=== PATIENT | male | born 1955 | race Caucasian/White ===

== ENCOUNTER 2017-06-20 12:23 | Inpatient (IN) | payer MEDICARE ==
--- NOTE | 2017-06-20 12:40 | NUR ---
RECEIVED FROM MD OFFICE. ARRIVED TO FLOOR IN . ORIENTED TO ROOM AND CALL LIGHT SYSTEM. EXPLAINED TO PATIENT THAT I NEED FOR HIM TO CHANGE INTO HIS GOWN SO THAT I CAN GET HIS IV STARTED AND MEDS GOING. VERBALIZED UNDERSTANDING.
--- NOTE | 2017-06-20 13:10 | NUR ---
TO RADIOLOGY VIA .
[2017-06-20 14:00] LABS: BASOPHILS 0.2 % (0-2); EOSINOPHILS 1.3 % (0-7); HEMATOCRIT 47.6 % (42.0-54.0); IMMATURE GRANULOCYTES 0.2 % (0-5); LYMPHOCYTES 17.8 % (15-50); MCH 29.8 pg (26.0-34.0); MCHC 33.6 g/dL (31.0-37.0); MCV 88.6 fL (80.0-100.0); MEAN PLATELET VOLUME 11.2 fL (7.4-10.4); MONOCYTES 4.8 % (2-11); NEUTROPHILS 75.7 % (40-80); PLATELET COUNT 298 10x3/uL (130-400); RBC 5.37 10x6/uL (4.20-6.10); RDW 12.9 % (11.5-14.5); WBC 13.4 10x3/uL (4.8-10.8)
[2017-06-20 14:18] LABS: ALKALINE PHOSPHATASE 157 U/L (46-116); ALT (SGPT) 33 U/L (10-68); BILIRUBIN - TOTAL 0.69 mg/dL (0.2-1.3); CARBON DIOXIDE 29.2 mmol/L (21.0-32.0); POTASSIUM - SERUM 4.3 mmol/L (3.5-5.1); PROTEIN - SERUM 7.2 g/dL (6.4-8.2); UREA NITROGEN 10 mg/dL (7-18); eGFR NON AFRICAN AMERICAN 81 mL/min (90-120)
--- NOTE | 2017-06-20 14:55 | NUR ---
BACK IN ROOM AT THIS TIME FROM NRI. ATTEMPTED TO GO IN ROOM TO START IV BUT HE WAS IN THE BR AGAIN.
[2017-06-20 15:00] LABS: HEMOGLOBIN A1C 11.6 % (4.8-6.0)
[2017-06-20 15:02] LABS: CALC OSMOLALITY 284 mosm/kg (275-300)
[2017-06-20 15:03] LABS: GLUCOSE 884 mg/dL (74-106)
[2017-06-20 15:04] LABS: CHLORIDE - SERUM 80 mmol/L (98-107); SODIUM 120 mmol/L (136-145)
[2017-06-20] MEDS ORDERED: ULTRAM50 MG PO (15:49)
[2017-06-20] MEDS ORDERED: LISINOPRIL-HCTZ1 T13 PO (15:49)
[2017-06-20] MEDS ORDERED: ATIVAN0.5 MG PO (15:50)
[2017-06-20] MEDS ORDERED: NEURONTIN800 MG PO (15:50)
[2017-06-20] MEDS ORDERED: ZOCOR10 MG PO (15:50)
[2017-06-20 15:55] LABS: APPEARANCE CLEAR (CLEAR); BILIRUBIN NEGATIVE (NEGATIVE); COLOR YELLOW (YELLOW); GLUCOSE 1000 mg/dL (NEGATIVE); KETONE NEGATIVE (NEGATIVE); NITRITE NEGATIVE (NEGATIVE); PROTEIN NEGATIVE (NEGATIVE); UROBILINOGEN NORMAL (NORMAL)
--- NOTE | 2017-06-20 16:40 | NUR ---
VANCOMYCIN IVPB. FSBS 564. WILL PUT IN STAT LAB FOR GLUCOSE.
--- NOTE | 2017-06-20 17:33 | NUR ---
28 UNITS ADMINISTERED AGAIN FOR GLUCOSE OF 611.
[2017-06-20 17:42] VITALS: BP 126/76
--- NOTE | 2017-06-20 18:08 | NUR ---
NO CHANGES IN INITIAL ASSESSMENT. CALL LIGHT IN REACH. WILL CONTINUE WITH PLAN OF CARE.
[2017-06-20 19:11] VITALS: BMI 42.7
[2017-06-20 20:00] VITALS: BP 135/70
--- NOTE | 2017-06-21 02:00 | NUR ---
PT IN BED WITH NO DISTRESS. RESPIRATIONS EVEN AND UNLABORED. SIDE RAILS X 2. BED LOW. CALL LIGHT IN REACH.
[2017-06-21 04:00] VITALS: BP 101/83
[2017-06-21 05:23] LABS: BASOPHILS 0.2 % (0-2); EOSINOPHILS 2.8 % (0-7); HEMATOCRIT 46.2 % (42.0-54.0); HEMOGLOBIN 15.9 g/dL (13.5-17.5); IMMATURE GRANULOCYTES 0.3 % (0-5); LYMPHOCYTES 27.3 % (15-50); MCH 29.7 pg (26.0-34.0); MCHC 34.4 g/dL (31.0-37.0); MEAN PLATELET VOLUME 10.5 fL (7.4-10.4); MONOCYTES 6.9 % (2-11); NEUTROPHILS 62.5 % (40-80); PLATELET COUNT 285 10x3/uL (130-400); RBC 5.36 10x6/uL (4.20-6.10); RDW 12.8 % (11.5-14.5); WBC 12.3 10x3/uL (4.8-10.8)
[2017-06-21 05:39] LABS: MCV 86.2 fL (80.0-100.0)
[2017-06-21 05:57] LABS: ALBUMIN 2.8 g/dL (3.4-5.0); ALKALINE PHOSPHATASE 110 U/L (46-116); ALT (SGPT) 29 U/L (10-68); BILIRUBIN - TOTAL 0.66 mg/dL (0.2-1.3); CALCIUM 8.8 mg/dL (8.5-10.1); CHLORIDE - SERUM 89 mmol/L (98-107); CREATININE - SERUM 0.8 mg/dL (0.6-1.3); PHOSPHOROUS 3.5 mg/dL (2.5-4.9); PROTEIN - SERUM 7.2 g/dL (6.4-8.2); SODIUM 132 mmol/L (136-145); UREA NITROGEN 10 mg/dL (7-18); eGFR NON AFRICAN AMERICAN > 90 mL/min (90-120)
[2017-06-21 06:04] LABS: KETONE - SERUM NEGATIVE (NEGATIVE)
[2017-06-21 06:16] LABS: CALC OSMOLALITY 266 mosm/kg (275-300); GLUCOSE 161 mg/dL (74-106)
--- NOTE | 2017-06-21 07:00 | NUR ---
REPORT RECIEVED ASSUMED CARE. PATIENT IN BED WITH IV INTACT. NO COMPLAINTS. CALL LIGHT WITHIN REACH.
[2017-06-21 08:09] VITALS: BP 115/75
--- NOTE | 2017-06-21 09:30 | NUR ---
PATIENT PLACED ON TEMP ISO FOR POSS MRSA.
[2017-06-21 12:28] VITALS: BP 116/72
--- NOTE | 2017-06-21 12:28 | NUR ---
NUTRITION F/U CHART REVIEWED, PT VISIT X2. PROVIDED DM DIET EDU INFORMATION. PT DOES ADMIT TO PRIOR EDU "BUT HAVEN'T BEEN DOING WHAT I'M SUPPOSED TO". PT STATED HE WOULD READ THRU ALL INFORMATION. DISCUSSED LABEL READING, PORTION CONTROL, # CARB CHOICES ALLOWED WITH EACH MEAL. PT JOKINGLY ? ASKED FOR [address] CHE[address]GERS [address] LUNCH[address] PROVIDED RD NAME & CONTACT INFORMATION. RD FOLLOWING
--- NOTE | 2017-06-21 14:48 | NUR ---
Wound care consult: Right great toe was amputated 2 years ago. There is an open non-healing wound at amputation site measuring 5cm x 5cm x 0.8cm. The wound bed is red and yellow surrounded by black,calloused, dry escar. Right #2 toe tip (pad on underside of toe) has an open non-healing wound meauring 3cm x 3cm x 0.5cm. The wound bed is red and yellow and is surrounded by black,caloused, dry escar. Arch of right foot is red - looks like it was peeled, but it dry. Left great toe was amputated approx 2 years ago and this site appears healed. The left #2 toe has a large thick callous on the underside (pad) of toe. No drainage or odor noted from any of these wounds. Cultures were obtained 06/20/17. Bactroban ointment is being applied twice daily to right foot and foot is wrapped for protection. Wound care will continue monitoring.
[2017-06-21 15:47] VITALS: BP 114/65
--- NOTE | 2017-06-21 18:45 | NUR ---
PATIENT SITTING UP ON THE SIDE OF THE BED WITH NO COMPLAINTS AT THIS TIME. IV INTACT. DRESSING OFF. WAS WAITING FOR DR. BECKER TO SEE IF HE WAS GOING TO DEBRIDE TOE TODAY. DRESSING TO BE REPLACED. CALL LIGHT WITHIN REACH.
[2017-06-21 20:00] VITALS: BP 120/70
--- NOTE | 2017-06-21 20:07 | NUR ---
PATIENT RESTING IN BED AND DENIES NEEDS AT THIS TIME. BED IN LOWEST POSITION AND CALL LIGHT WITHIN REACH. ENCOURAGED THE PATIENT TO CALL IF HE HAS NEEDS.
--- NOTE | 2017-06-21 22:00 | HP ---
PATIENT: ZE SAHU MEDICAL RECORD: [id number] ACCOUNT: [id number] LOCATION:D.[id number] : 59 ADMISSION DATE: 06/20/17 HISTORY AND PHYSICAL EXAMINATION HISTORY OF PRESENT ILLNESS: Mr. Sahu is a 61-year-old white male with a history of poorly controlled diabetes with amputations of the digits on both feet, who presents today with a 6-week history of left foot pain with redness and swelling. He has had a previous amputation of the first and second toes of the right foot at [facility] last year and had an extended hospitalization. States that it has been read, swollen and looking infected for over 6 weeks, but he is just now coming in. [place] and his dog. He initially declined hospitalization until he can make arrangements for his dog and someone to watch his place. He denies any fever. He has had weight loss. He has had multiple other constitutionals going on right now. He is being admitted for evaluation of his foot. We will get cultures, x-rays, MRI and an ID consult. PAST MEDICAL HISTORY: Significant for known hyperlipidemia, hypertension, asthma, COPD, osteoarthritis, type 2 diabetes, obesity, anxiety, depression, chronic diarrhea, and diabetic neuropathy. Also, he has a history of polycythemia. PAST SURGICAL HISTORY: Include eye surgery in 2008 and bilateral toe amputations at [facility] 2014 or 2015. ALLERGIES OR INTOLERANCES: INCLUDE NAPROSYN. CURRENT HOME MEDICATIONS: Include gabapentin 800 mg t.i.d., metformin 1000 one b.i.d., simvastatin 10 mg at bedtime and aspirin a day, tramadol 1-2 q.4-6 p.r.n. pain, albuterol nebulizer O2 at h.s., Tylenol and lisinopril/HCTZ 20/25 daily. FAMILY HISTORY: Significant for heart failure, coronary artery disease, hypertension, COPD, hepatitis C, renal failure and type 2 diabetes. SOCIAL HISTORY: The patient is a equipment mechanic. He is . He is a smoker, smokes 2 packs a day. He does not drink. REVIEW OF SYSTEMS: Significant for worsening fatigue. No fever. He has been having some weight loss. He complains of a dry mouth. No chest pain, no shortness of breath. He complains of multiple joint pains, low back pain, foot pain, numbness, tingling compatible with neuropathy. PHYSICAL EXAMINATION: GENERAL: He obviously does not feel well. He is a little tearful at times. HEENT: Head is normocephalic, sclerae nonicteric. HEART: Regular. LUNGS: Clear. ABDOMEN: Soft. EXTREMITIES: Bilateral feet shows bilateral toe amputations, the left foot has healed well. The right foot is red, swollen and warm distally. There is a large ulcer with a size of a 50-cent piece on the right foot, which showed granulation. There is grass and dirt down in it and it is draining. NEUROLOGIC: Without any gross symptoms. HISTORY AND PHYSICAL [id number] ZE SAHU PSYCHIATRIC: His affect is okay. Mood seems depressed. IMPRESSION: Diabetic foot ulcer with probable infection, diabetic neuropathy, chronic obstructive pulmonary disease, peripheral vascular disease, hyperlipidemia, hypertension, depression and chronic pain. PLAN: Orders were given to the patient and we will fax to the hospital. He promises to go once he has made arrangements for his dog and someone to watch his place. We will start him on IV fluids, get cultures, start some IV Zosyn and vancomycin, ask ID to see, get an x-ray of the foot, get an MRI of the foot. See orders for rest of plan. TRANSINT:[id number] Voice Confirmation ID: [id number] DOCUMENT ID: [id number] IRINA BATISTA DO at 2200 CC: [id number] DICTATION DATE: 06/19/171845 SPEECH COACH: 06/19/172000 ADM IN [facility] [id number] [place] [address]
--- NOTE | 2017-06-22 02:18 | NUR ---
SITTING UP ON BEDSIDE, DENIES NEEDS, NO DISTRESS NOTED, WILL CONTINUE TO MONITOR
[2017-06-22 06:15] LABS: BASOPHILS 0.2 % (0-2); EOSINOPHILS 2.7 % (0-7); HEMATOCRIT 44.6 % (42.0-54.0); HEMOGLOBIN 14.9 g/dL (13.5-17.5); IMMATURE GRANULOCYTES 0.3 % (0-5); MCH 29.3 pg (26.0-34.0); MCHC 33.4 g/dL (31.0-37.0); MCV 87.6 fL (80.0-100.0); MEAN PLATELET VOLUME 10.7 fL (7.4-10.4); NEUTROPHILS 64.8 % (40-80); PLATELET COUNT 263 10x3/uL (130-400); RBC 5.09 10x6/uL (4.20-6.10); RDW 12.8 % (11.5-14.5); WBC 9.5 10x3/uL (4.8-10.8)
[2017-06-22 06:43] LABS: ALBUMIN 2.8 g/dL (3.4-5.0); ALKALINE PHOSPHATASE 111 U/L (46-116); BILIRUBIN - TOTAL 0.48 mg/dL (0.2-1.3); CALCIUM 8.7 mg/dL (8.5-10.1); CARBON DIOXIDE 34.1 mmol/L (21.0-32.0); CHLORIDE - SERUM 95 mmol/L (98-107); CREATININE - SERUM 0.6 mg/dL (0.6-1.3); POTASSIUM - SERUM 3.4 mmol/L (3.5-5.1); PROTEIN - SERUM 6.5 g/dL (6.4-8.2); SODIUM 134 mmol/L (136-145); UREA NITROGEN 12 mg/dL (7-18); eGFR NON AFRICAN AMERICAN > 90 mL/min (90-120)
[2017-06-22 06:54] LABS: ALT (SGPT) 11 U/L (10-68); CALC OSMOLALITY 275 mosm/kg (275-300); GLUCOSE 236 mg/dL (74-106)
--- NOTE | 2017-06-22 07:00 | NUR ---
REPORT RECIEVED ASSUMED CARE. PATIENT IN BED WITH IV INTACT. NO COMPLAINTS AT THIS TIME. CALL LIGHT WITHIN REACH.
--- NOTE | 2017-06-22 08:15 | NUR ---
ASSESSMENT COMPLETE, VS STABLE. IV INTACT. NO COMPLAINTS. DRESSING TO TOE OFF AT THIS TIME. STATED HE DIDNT WANT TO PUT ANOTHER ONE ON RIGHT NOW BECAUSE IT WOULD JUST COME OFF. WOUND CLEANED AND BACTROBAN APPLIED. CALL LIGHT WITHIN REACH.
[2017-06-22 08:38] VITALS: BP 141/78
--- NOTE | 2017-06-22 12:00 | NUR ---
PATIENT SITTING UP ON THE SIDE OF THE BED EATING. NO COMPLAINTS. IV INTACT. CALL LIGHT WITHIN REACH.
[2017-06-22 13:01] VITALS: BP 135/77
--- NOTE | 2017-06-22 15:57 | NUR ---
DR. BECKER IN ROOM. CLEANED WOUND OUT AND PLACED NEW BANDAGE AT THIS TIME. PATIENT TOLERATED WITH 0 PAIN. IV INTACT. CALL LIGHT WITHIN REACH.
[2017-06-22 16:18] VITALS: BP 133/71
--- NOTE | 2017-06-22 17:50 | NUR ---
PATIENT SITTING UP IN BED WITH IV INTACT. REINFORCED DRESSING WITH GAUZE AND KERLIX DUE TO BLEEDING. PATIENT HAS NO COMPLAINTS OR DISTRESS. CALL LIGHT WITHIN REACH.
--- NOTE | 2017-06-22 19:15 | NUR ---
RECEIVED CARE FROM DAY NURSE. PT SITTING UP ON SIDE OF BED. REPORTS NO NEEDS AT THIS TIME. CALL LIGHT AT SIDE. PER DAY NURSE BEDSIDE DEBRIDEMENT OF TOE PREFORMED TODAY, BLEED THROUGH OCCURED TO DRESSING, REINFORCED BY DAY NURSE.
[2017-06-22 20:00] VITALS: BP 128/76
[2017-06-23] VITALS: BP 144/79
--- NOTE | 2017-06-23 00:45 | NUR ---
PT LYING IN BED IN HIGH FOWLERS POSITION WATCHING TV. REPORTS NO NEEDS AT THIS TIME. CALL LIGHT AT SIDE. IV INFUSING ABX AT THIS TIME.
[2017-06-23 05:18] LABS: BASOPHILS 0.3 % (0-2); EOSINOPHILS 3.8 % (0-7); HEMATOCRIT 43.1 % (42.0-54.0); HEMOGLOBIN 14.4 g/dL (13.5-17.5); IMMATURE GRANULOCYTES 0.3 % (0-5); LYMPHOCYTES 29.6 % (15-50); MCH 29.4 pg (26.0-34.0); MCHC 33.4 g/dL (31.0-37.0); MEAN PLATELET VOLUME 10.5 fL (7.4-10.4); MONOCYTES 6.9 % (2-11); NEUTROPHILS 59.1 % (40-80); PLATELET COUNT 246 10x3/uL (130-400); RDW 12.8 % (11.5-14.5)
[2017-06-23 05:39] LABS: ALBUMIN 2.6 g/dL (3.4-5.0); ALKALINE PHOSPHATASE 95 U/L (46-116); CALCIUM 8.6 mg/dL (8.5-10.1); CARBON DIOXIDE 31.8 mmol/L (21.0-32.0); CHLORIDE - SERUM 93 mmol/L (98-107); CREATININE - SERUM 0.7 mg/dL (0.6-1.3); POTASSIUM - SERUM 3.1 mmol/L (3.5-5.1); PROTEIN - SERUM 6.4 g/dL (6.4-8.2); SODIUM 132 mmol/L (136-145); UREA NITROGEN 9 mg/dL (7-18); eGFR NON AFRICAN AMERICAN > 90 mL/min (90-120)
[2017-06-23 05:42] LABS: ALT (SGPT) 31 U/L (10-68); CALC OSMOLALITY 275 mosm/kg (275-300); GLUCOSE 308 mg/dL (74-106)
[2017-06-23 06:00] VITALS: BP 107/60
--- NOTE | 2017-06-23 08:00 | NUR ---
RECIEVED PT FROM WOOD CREW SUPERVISOR NURSE. ASSESSMENT DONE PER FLOWSHEET. PT COMPLAINS OF PAIN OF A 6 ON A SCALE OF 1-10. NO MEDICATION REQUESTED AT THIS TIME. BED IN LOW POSITION AND CALL LIGHT WITHIN REACH. WILL CONTINUE TO MONITOR.
[2017-06-23 08:42] VITALS: BP 109/62
[2017-06-23 12:52] VITALS: BP 125/89
[2017-06-23 16:04] VITALS: BP 126/66
--- NOTE | 2017-06-23 19:15 | NUR ---
RECEIVED CARE FROM DAY NURSE. PT SITTING UP ON SIDE OF BED. REPORTS NO NEEDS. CALL LIGHT AT SIDE. IV TO LEFT WRIST PATENT AND INFUSING PER ORDER.
[2017-06-23 20:00] VITALS: BP 123/77
--- NOTE | 2017-06-23 23:30 | NUR ---
PT SITTING UP ON SIDE OF BED. REPORTS NO NEEDS. CALL LIGHT AT SIDE. WILL CONTINUE TO MONITOR.
[2017-06-24] VITALS: BP 133/80
--- NOTE | 2017-06-24 03:39 | NUR ---
PATIENT SITTING UP IN THE CHAIR AND DENIES NEEDS AT THIS TIME. ENCOURAGED THE PATIENT TO CALL IF HE HAS NEEDS.
--- NOTE | 2017-06-24 03:53 | NUR ---
PT UP TO BATHROOM. REPORTS NO NEEDS. IV INFUSING TO LEFT WRIST PER ORDER.
[2017-06-24 04:00] VITALS: BP 130/77
[2017-06-24 06:40] LABS: BASOPHILS 0.3 % (0-2); EOSINOPHILS 3.1 % (0-7); HEMATOCRIT 44.8 % (42.0-54.0); HEMOGLOBIN 14.9 g/dL (13.5-17.5); IMMATURE GRANULOCYTES 0.3 % (0-5); LYMPHOCYTES 31.2 % (15-50); MCH 29.3 pg (26.0-34.0); MCHC 33.3 g/dL (31.0-37.0); MCV 88.2 fL (80.0-100.0); MEAN PLATELET VOLUME 10.1 fL (7.4-10.4); MONOCYTES 5.1 % (2-11); PLATELET COUNT 245 10x3/uL (130-400); RBC 5.08 10x6/uL (4.20-6.10); RDW 12.7 % (11.5-14.5); WBC 9.1 10x3/uL (4.8-10.8)
[2017-06-24 06:52] LABS: ALBUMIN 2.8 g/dL (3.4-5.0); ALKALINE PHOSPHATASE 100 U/L (46-116); ALT (SGPT) 38 U/L (10-68); BILIRUBIN - TOTAL 0.53 mg/dL (0.2-1.3); CALCIUM 8.9 mg/dL (8.5-10.1); CARBON DIOXIDE 29.1 mmol/L (21.0-32.0); CHLORIDE - SERUM 96 mmol/L (98-107); CREATININE - SERUM 0.7 mg/dL (0.6-1.3); PROTEIN - SERUM 7.2 g/dL (6.4-8.2); SODIUM 134 mmol/L (136-145); UREA NITROGEN 9 mg/dL (7-18); VANCOMYCIN - TROUGH 21.7 ug/mL (10.0-20.0); eGFR NON AFRICAN AMERICAN > 90 mL/min (90-120)
[2017-06-24 06:53] LABS: CALC OSMOLALITY 273 mosm/kg (275-300); GLUCOSE 232 mg/dL (74-106); POTASSIUM - SERUM 3.7 mmol/L (3.5-5.1)
--- NOTE | 2017-06-24 07:30 | NUR ---
RECIEVED PT DURING WALKING ROUNDS. PT RESTING IN BED WITH NO COMPLAINTS OF PAIN OR DISCOMFORT AT THIS TIME. ASSESSMENT DONE PER FLOWSHEET. BED IN LOW POSITION AND CALL LIGHT WITHIN REACH. WILL CONTINUE TO MONITOR.
--- NOTE | 2017-06-24 09:25 | NUR ---
DRESSING CHANGED TO RIGHT FOOT AT THIS TIME PER ORDER. PT TOLERATED WELL. BED IN LOW POSITION AND CALL LIGHT WITHIN REACH. WILL CONTINUE TO MONITOR.
[2017-06-24 09:33] VITALS: BP 114/61
[2017-06-24 12:09] VITALS: BP 103/71
--- NOTE | 2017-06-24 19:15 | NUR ---
RECEIVED CARE FROM DAY NURSE. PT REQUEST WATER AND NOTHING ELSE AT THIS TIME. CALL LIGHT AT SIDE.
[2017-06-24 20:00] VITALS: BP 97/64
--- NOTE | 2017-06-25 02:58 | NUR ---
PT SITTING UP ON SIDE OF BED. REQUEST COFFEE. NO OTHER NEEDS VOICED AT THIS TIME. IV INFUSING TO LEFT WRIST PER ORDER. CALL LIGHT AT SIDE.
[2017-06-25 05:48] LABS: BASOPHILS 0.2 % (0-2); EOSINOPHILS 3.6 % (0-7); HEMATOCRIT 45.3 % (42.0-54.0); HEMOGLOBIN 14.7 g/dL (13.5-17.5); IMMATURE GRANULOCYTES 0.3 % (0-5); LYMPHOCYTES 33.3 % (15-50); MCH 29.3 pg (26.0-34.0); MCHC 32.5 g/dL (31.0-37.0); MEAN PLATELET VOLUME 10.4 fL (7.4-10.4); MONOCYTES 5.9 % (2-11); NEUTROPHILS 56.7 % (40-80); PLATELET COUNT 260 10x3/uL (130-400); RBC 5.02 10x6/uL (4.20-6.10); RDW 13.1 % (11.5-14.5); WBC 8.9 10x3/uL (4.8-10.8)
[2017-06-25 05:53] LABS: MCV 90.2 fL (80.0-100.0)
[2017-06-25 06:25] LABS: ALBUMIN 2.9 g/dL (3.4-5.0); ALKALINE PHOSPHATASE 93 U/L (46-116); ALT (SGPT) 34 U/L (10-68); CALC OSMOLALITY 278 mosm/kg (275-300); CALCIUM 9.2 mg/dL (8.5-10.1); CARBON DIOXIDE 29.9 mmol/L (21.0-32.0); CHLORIDE - SERUM 99 mmol/L (98-107); CREATININE - SERUM 0.8 mg/dL (0.6-1.3); GLUCOSE 245 mg/dL (74-106); POTASSIUM - SERUM 4.1 mmol/L (3.5-5.1); PROTEIN - SERUM 7.1 g/dL (6.4-8.2); SODIUM 136 mmol/L (136-145); UREA NITROGEN 10 mg/dL (7-18); eGFR NON AFRICAN AMERICAN > 90 mL/min (90-120)
--- NOTE | 2017-06-25 08:03 | NUR ---
AWAKE AND ALERT. ORIENTED X3. NO C/O PAIN THIS AM. LUNGS ARE CLEAR BILATERALLY, NO COUGH NOTED. SKIN IS INTACT WITHOUT REDNESS EXCEPT WOUND TO RIGHT FOOT WHICH HAS A DRY INTACT DRESSING IN PLACE. IV TO LEFT WIRST IS PATNENT WITHOUT REDNESS AT INSERTION SITE. DENIES NEEDS.
[2017-06-25 08:30] VITALS: BP 134/82
--- NOTE | 2017-06-25 09:15 | NUR ---
REQUESTED AND GIVEN ONE HYDROCODONE PO FOR GENERALIZED PAIN LEVEL 10. WILL MONITOR.
--- NOTE | 2017-06-25 11:45 | NUR ---
PT NONCOMPLIANT WITH TX ADMINISTRATION OR PEP THERAPY STATES IT MAKES HIM NAUTIOUS AND HE IS SOON TO BE DISCHARGED
--- NOTE | 2017-06-25 12:00 | NUR ---
FSBS 240.GIVEN 12 UNITS HUMALOG SUBQ FOR SAME. LUNCH SERVED IN ROOM. FEEDS SELF.
[2017-06-25] MEDS ORDERED: KEFLEX500 MG PO (12:23)
[2017-06-25] MEDS ORDERED: LEVAQUIN750 MG PO (12:23)
[2017-06-25] MEDS ORDERED: K-DUR20 MEQ PO (12:23)
[2017-06-25] MEDS ORDERED: Bactroban ointment TOPICAL (12:24)
[2017-06-25] MEDS ORDERED: LANTUS INSULIN10 ML SC (12:24)
[2017-06-25] MEDS ORDERED: FLORANEX / LACT1 TAB PO (12:26)
[2017-06-25] MEDS ORDERED: NORCO 7.5/325 T1 TA1 PO (12:26)
--- NOTE | 2017-06-25 12:32 | NUR ---
Patient Name: ZE SAHU Admission Status: Urgent Accout number: [id number] Admission Date: 06-20-2017 : 1955 Admission Diagnosis:TYPE 2 DIABETES MELLITUS WITH FOOT ULCER Attending: GUERA HANDY Current LOS: 5 Anticipated DC Date: Planned Disposition: Home with Home Health Primary Insurance: [employer] Discharge Planning Comments: CM met with patient to assess discharge planning needs. Patient stated that he lives home alone where he is independent with his ADL's. Patient has a friend who will come get him and take him home. Patient stated that he has a hospital bed, shower chair, home o2, walker, and nebulizer at home. He would like HH when he is discharged and he picked [facility] (SID signed and placed in chart) CM will continue to follow and assist with discharge planning needs. PCP: Bhavana Rodríguez's Angle Shearer: Linda Rocha * Is the patient Alert and Oriented? Yes 0 * How many steps to enter\\exit or inside your home? 0 0 * PCP Bhavana 0 * Pharmacy [facility] 0 * Preadmission Environment Home Alone 0 * ADLs Independent 0 * List name and contact numbers for known caregivers / representatives who currently or will assist patient after discharge: "friend" 0 * Community resources currently utilized None 0 * Additional services required to return to the preadmission environment? Yes 0 * Can the patient safely return to the preadmission environment? Yes 0 * Has this patient been hospitalized within the prior 30 days at any hospital? No 0 Grand Total: 0
--- NOTE | 2017-06-25 12:41 | NUR ---
called [facility] about referral and she stated that [facility] does not accept this insurance. the only company that accepts [facility] is [employer]. Referral will be sent to [facility]
--- NOTE | 2017-06-25 13:13 | NUR ---
PATIENT BEING DISCHARGE HOME TODAY, IMM SIGNED AND FRIEND WILL BE THE FORK ASSEMBLER. PT WILL HAVE [facility]
--- NOTE | 2017-06-25 13:15 | NUR ---
REQUESTED AND GIVEN ONE HYDROCODONE PO FOR C/O GENERALIZED PAIN LEVEL 10. WILL MONITOR.
--- NOTE | 2017-06-25 14:30 | NUR ---
DR HO HERE. DRESSING CHANGED TO RIGHT FOOT. WOUND IS CLOSED AND SCABBED.
--- NOTE | 2017-06-25 15:30 | NUR ---
DISCHARGED TO HOME WITH FAMILY AMBULATORY. DISCHARGE INSTRUCTIONS GIVEN BOTH VERBALLY AND WRITTEN. ALL QUESTIONS ANSWERED. PATIENT VERBALIZED UNDERSTANDING OF SAME. NEEDED PRESCRIPTIONS GIVEN IN HARD COPY AND THE REST ESCRIBED TO [facility] IN [place] PER PATIENT REQUEST. IV TO LEFT WRIST D/C WITH CATHETER INTACT.
[2017-06-26 15:20] LABS: AEROBE ID Final report (())
== END 2017-06-25 15:30 | disposition home health service (06) | DRG 638 ==
LOC: D.MS 12:23
PROVIDERS: Family Medicine; ADMIT Family Medicine
PROC: 0HBMXZZ Excision of Right Foot Skin, External Approach (ICD-10-PCS; principal; 2017-06-22)
DX: E11.621 Type 2 diabetes mellitus with foot ulcer (principal); L03.115 Cellulitis of right lower limb; E87.1 Hypo-osmolality and hyponatremia; L97.412 Non-pressure chronic ulcer of right heel and midfoot with fat layer exposed; J84.9 Interstitial pulmonary disease, unspecified; E11.65 Type 2 diabetes mellitus with hyperglycemia; K21.9 Gastro-esophageal reflux disease without esophagitis; E11.42 Type 2 diabetes mellitus with diabetic polyneuropathy; Z91.19 Patient's noncompliance with other medical treatment and regimen; R09.02 Hypoxemia; B95.61 Methicillin susceptible Staphylococcus aureus infection as the cause of diseases classified elsewhere; B96.4 Proteus (mirabilis) (morganii) as the cause of diseases classified elsewhere; B96.20 Unspecified Escherichia coli [E. coli] as the cause of diseases classified elsewhere; F17.201 Nicotine dependence, unspecified, in remission; E87.6 Hypokalemia

== ENCOUNTER 2018-06-15 08:47 | Inpatient (IN) | payer MEDICARE ==
[~2018-06-15] VITALS: Ht 182.9 cm; Wt 129.2 kg
--- NOTE | ~2018-06-15 | MORECARE ---
CASE MANAGEMENT DISCHARGE SUMMARY PATIENT: ZE SAHU UNIT: [id number] ADM DATE: 06/15/18 AGE: 62 : 59 SEX: M ROOM/BED: D.1209 AUTHOR: SARAYDOC PHYSICIAN: REFERRING PHYSICIAN: MORA KISER MD DATE OF SERVICE: 06/21/18 Discharge Plan Patient Name: ZE SAHU Facility: [facility]:[place] : 1955 Planned Disposition: Home Anticipated Discharge Date: Discharge Date: Expected LOS: Initial Reviewer: [email or web address] Initial Review Date: 06/15/2018 Generated: 06/21/18 5:44 pm Comments DCP- Discharge Planning Updated by [email or web address]: Mariana Redman on 06/19/18 6:[address] Late Entry 06/19/18 @ 1500 Patient Name: ZE SAHU Admission Status: ER Accout number: [id number] Admission Date: 06-15-2018 : 1955 Admission Diagnosis: Attending: RASHEL, Current LOS: 4 Anticipated DC Date: Planned Disposition: Home Primary Insurance: [facility] Discharge Planning Comments: CM met with patient at bedside after obtaining verbal consent. Patient states he plans on returning home alone after discharge. Patient states he will have family transport him home via private vehicle. Patient states he may need home health for dressing changes at home. CM will continue to follow and assist as needed for discharge planning / needs. Roofer Helper Vinyl Coating: Mariana Redman DCPIA - Discharge Planning Initial Assessment Updated by [email or web address]: Mariana Redman on 06/19/18 7:06 pm * Is the patient Alert and Oriented? Yes * How many steps to enter\exit or inside your home? * PCP DR. BATISTA * Pharmacy [facility] * Preadmission Environment Home Alone * ADLs Independent * Equipment Cane * Other Equipment WALKER * List name and contact numbers for known caregivers / representatives who currently or will assist patient after discharge: NASIM GARRISON [phone] FRIEND GABY SAHU [phone] UNCLE * Verbal permission to speak to the caregivers and representatives has been obtained from the patient. Yes * Community resources currently utilized None * Please name any agencies selected above. HAS HAD HOME HEALTH PREVIOUSLY * Additional services required to return to the preadmission environment? No * Can the patient safely return to the preadmission environment? Yes * Has this patient been hospitalized within the prior 30 days at any hospital? No External Providers External Provider: OTHER-OTHER Next Contact Date: Service Request Date: Service Type: Resolution: Reviewer: Comments: Last DP export: 06/19/18 6:13 Patient Name: ZE SAHU Page 15824 at 1644 All edits/amendments must be made on the electronic document DICTATION DATE: 06/21/181642 MECHANIC ASSISTANT: LAUREEN 06/21/181642 RPT#: [id number] DC DATE: STATUS: ADM IN [facility] [address] [place] [address] END OF REPORT
--- NOTE | ~2018-06-15 | MORECARE ---
CASE MANAGEMENT DISCHARGE SUMMARY PATIENT: ZE SAHU UNIT: [id number] ADM DATE: 06/15/18 AGE: 62 : 59 SEX: M ROOM/BED: D.1209 AUTHOR: ADELAIDE SO PHYSICIAN: REFERRING PHYSICIAN: MORA KISER MD DATE OF SERVICE: 06/21/18 Discharge Plan Patient Name: ZE SAHU Facility: [facility]:[place] : 1955 Planned Disposition: Home Anticipated Discharge Date: Discharge Date: Expected LOS: Initial Reviewer: [email or web address] Initial Review Date: 06/15/2018 Generated: 06/21/18 7:04 pm Comments DCP- Discharge Planning Updated by [email or web address]: Mariana Redman on 06/21/18 4:[address] CM was notified that patient will need Home Health for dressing changes. CM spoke with patient and stated that he wanted to use the same company he has used in the past. CM called Dr. Batista office to obtain Home Health agency. [facility] was notified and records faxed. Agency will not be able to start dressing changes until 06/24. CM was notified later that patient will most likely need IV home antibiotics. Awaiting to find out which antibiotics will be needed for home therapy. If IV antibiotics are needed will need to check with infusion company. IMM explained and served @1101 CM will continue to follow and assist as needed with discharge planning / needs. DCP- Discharge Planning Updated by [email or web address]: Mariana Redman on 06/19/18 6:[address] Late Entry 06/19/18 @ 1500 Patient Name: ZE SAHU Admission Status: ER Accout number: [id number] Admission Date: 06-15-2018 : 1955 Admission Diagnosis: Attending: RASHEL, Current LOS: 4 Anticipated DC Date: Planned Disposition: Home Primary Insurance: [employer] Discharge Planning Comments: CM met with patient at bedside after obtaining verbal consent. Patient states he plans on returning home alone after discharge. Patient states he will have family transport him home via private vehicle. Patient states he may need home health for dressing changes at home. CM will continue to follow and assist as needed for discharge planning / needs. Net Developer Architect: Mariana Redman DCPIA - Discharge Planning Initial Assessment Updated by [email or web address]: Mariana Redman on 06/19/18 7:06 pm * Is the patient Alert and Oriented? Yes * How many steps to enter\exit or inside your home? * PCP DR. BATISTA * Pharmacy [facility] * Preadmission Environment Home Alone * ADLs Independent * Equipment Cane * Other Equipment WALKER * List name and contact numbers for known caregivers / representatives who currently or will assist patient after discharge: NASIM GARRISON [phone] FRIEND GABY SAHU [phone] UNCLE * Verbal permission to speak to the caregivers and representatives has been obtained from the patient. Yes * Community resources currently utilized None * Please name any agencies selected above. HAS HAD HOME HEALTH PREVIOUSLY * Additional services required to return to the preadmission environment? No * Can the patient safely return to the preadmission environment? Yes * Has this patient been hospitalized within the prior 30 days at any hospital? No Coverage Notice Reviewer: [email or web address] - Mariana Redman Notice Issued Date-Time: 06/21/2018 11:01 Notice Type: IM Discharge Notice Notice Delivered To: Patient Relationship to Patient: Self Retail Client Solutions Analyst Name: Delivery Method: HAND - Hand Delivered Shahrzad Days: Prior Verbal Notification: Recipient Understood Notice: Yes Recipient Signature: Yes Med Rec Note Co-signed by Attending: Coverage Notice Comment: Last DP export: 06/21/18 4:51 Patient Name: ZE SAHU Page 84834 at 1804 All edits/amendments must be made on the electronic document DICTATION DATE: 06/21/181803 FINANCIAL AID ADMINISTRATOR: LAUREEN 06/21/181803 RPT#: [id number] [place] DATE: STATUS: ADM IN [facility] [address] [place] [address] END OF REPORT
--- NOTE | ~2018-06-15 | MORECARE ---
CASE MANAGEMENT DISCHARGE SUMMARY PATIENT: ZE SAHU UNIT: [id number] ADM DATE: 06/15/18 AGE: 62 : 59 SEX: M ROOM/BED: D.1209 AUTHOR: ADELAIDE SO PHYSICIAN: REFERRING PHYSICIAN: MORA KISER MD DATE OF SERVICE: 06/17/18 Discharge Plan Patient Name: ZE SAHU Facility: [facility]:[place] : 1955 Planned Disposition: Anticipated Discharge Date: Discharge Date: Expected LOS: Initial Reviewer: [email or web address] Initial Review Date: 06/15/2018 Generated: 06/17/18 5:46 pm Patient Name: ZE SAHU Page 14407 at 1646 All edits/amendments must be made on the electronic document DICTATION DATE: 06/17/181645 PULVERIZER TENDER: LAUREEN 06/17/181645 RPT#: [id number] DC DATE: STATUS: ADM IN [facility] [address] [place] [address] END OF REPORT
--- NOTE | ~2018-06-15 | MORECARE ---
CASE MANAGEMENT DISCHARGE SUMMARY PATIENT: ZE SAHU UNIT: [id number] ADM DATE: 06/15/18 AGE: 62 : 59 SEX: M ROOM/BED: D.1209 AUTHOR: SARAYDOC PHYSICIAN: REFERRING PHYSICIAN: MORA KISER MD DATE OF SERVICE: 06/19/18 Discharge Plan Patient Name: ZE SAHU Facility: [facility]:[place] : 1955 Planned Disposition: Home Anticipated Discharge Date: Discharge Date: Expected LOS: Initial Reviewer: [email or web address] Initial Review Date: 06/15/2018 Generated: 06/19/18 8:13 pm Comments DCP- Discharge Planning Updated by [email or web address]: Mariana Redman on 06/19/18 6:[address] Late Entry 06/19/18 @ 1500 Patient Name: ZE SAHU Admission Status: ER Accout number: [id number] Admission Date: 06-15-2018 : 1955 Admission Diagnosis: Attending: RASHEL, Current LOS: 4 Anticipated DC Date: Planned Disposition: Home Primary Insurance: [employer] Discharge Planning Comments: CM met with patient at bedside after obtaining verbal consent. Patient states he plans on returning home alone after discharge. Patient states he will have family transport him home via private vehicle. Patient states he may need home health for dressing changes at home. CM will continue to follow and assist as needed for discharge planning / needs. Senior J2Ee Developer: Mariana Redman DCPIA - Discharge Planning Initial Assessment Updated by [email or web address]: Mariana Redman on 06/19/18 7:06 pm * Is the patient Alert and Oriented? Yes * How many steps to enter\exit or inside your home? * PCP DR. BATISTA * Pharmacy [facility] * Preadmission Environment Home Alone * ADLs Independent * Equipment Cane * Other Equipment WALKER * List name and contact numbers for known caregivers / representatives who currently or will assist patient after discharge: NASIM GARRISON [phone] FRIEND GABY SAHU [phone] UN[place] * Verbal permission to speak to the caregivers and representatives has been obtained from the patient. Yes * Community resources currently utilized None * Please name any agencies selected above. HAS HAD HOME HEALTH PREVIOUSLY * Additional services required to return to the preadmission environment? No * Can the patient safely return to the preadmission environment? Yes * Has this patient been hospitalized within the prior 30 days at any hospital? No Last DP export: 06/19/18 6:07 Patient Name: ZE SAHU Page 45837 at 1913 All edits/amendments must be made on the electronic document DICTATION DATE: 06/19/181912 TELEMETRY MONITOR: LAUREEN 06/19/181912 RPT#: [id number] DC DATE: STATUS: ADM IN [facility] [address] [place] [address] END OF REPORT
--- NOTE | ~2018-06-15 | MORECARE ---
CASE MANAGEMENT DISCHARGE SUMMARY PATIENT: ZE SAHU UNIT: [id number] ADM DATE: 06/15/18 AGE: 62 : 59 SEX: M ROOM/BED: D.1209 AUTHOR: SARAYDOC PHYSICIAN: REFERRING PHYSICIAN: MORA KISER MD DATE OF SERVICE: 06/21/18 Discharge Plan Patient Name: ZE SAHU Facility: [facility]:[place] : 1955 Planned Disposition: Home Anticipated Discharge Date: Discharge Date: Expected LOS: Initial Reviewer: [id number] Initial Review Date: 06/15/2018 Generated: 06/21/18 6:51 pm Comments DCP- Discharge Planning Updated by [email or web address]: Mariana Redman on 06/19/18 6:[address] Late Entry 06/19/18 @ 1500 Patient Name: ZE SAHU Admission Status: ER Accout number: [id number] Admission Date: 06-15-2018 : 1955 Admission Diagnosis: Attending: RASHEL, Current LOS: 4 Anticipated DC Date: Planned Disposition: Home Primary Insurance: [employer] Discharge Planning Comments: CM met with patient at bedside after obtaining verbal consent. Patient states he plans on returning home alone after discharge. Patient states he will have family transport him home via private vehicle. Patient states he may need home health for dressing changes at home. CM will continue to follow and assist as needed for discharge planning / needs. Sustainability Engineer: Mariana Redman DCPIA - Discharge Planning Initial Assessment Updated by [email or web address]: Mariana Redman on 06/19/18 7:06 pm * Is the patient Alert and Oriented? Yes * How many steps to enter\exit or inside your home? * PCP DR. BATISTA * [facility] - [facility] * Preadmission Environment Home Alone * ADLs Independent * Equipment Cane * Other Equipment WALKER * List name and contact numbers for known caregivers / representatives who currently or will assist patient after discharge: NASIM GARRISON [phone] FRIEND GABY SAHU [phone] UNCLE * Verbal permission to speak to the caregivers and representatives has been obtained from the patient. Yes * Community resources currently utilized None * Please name any agencies selected above. HAS HAD HOME HEALTH PREVIOUSLY * Additional services required to return to the preadmission environment? No * Can the patient safely return to the preadmission environment? Yes * Has this patient been hospitalized within the prior 30 days at any hospital? No Last DP export: 06/21/18 3:44 Patient Name: ZE SAHU Page 37828 at 1751 All edits/amendments must be made on the electronic document DICTATION DATE: 06/21/181749 THIOKOL OPERATOR: LAUREEN 06/21/181749 RPT#: [id number] DC DATE: STATUS: ADM IN [facility] [address] [place] [address] END OF REPORT
--- NOTE | ~2018-06-15 | MORECARE ---
CASE MANAGEMENT DISCHARGE SUMMARY PATIENT: ZE SAHU UNIT: [id number] ADM DATE: 06/15/18 AGE: 62 : 59 SEX: M ROOM/BED: D.1209 AUTHOR: SARAYDOC PHYSICIAN: REFERRING PHYSICIAN: MORA KISER MD DATE OF SERVICE: 06/25/18 Discharge Plan Patient Name: ZE SAHU Facility: [facility]:[place] : 1955 Planned Disposition: Home Anticipated Discharge Date: Discharge Date: 06/25/2018 Expected LOS: Initial Reviewer: [email or web address] Initial Review Date: 06/15/2018 Generated: 06/25/18 1:27 pm Comments DCP- Discharge Planning Updated by [email or web address]: Mariana Redman on 06/25/18 11:[address] Late entry 06/25/18 @1000 CM notified of discharge today. CM contacted [facility] with [facility] [phone] and fax [phone]. [facility] stated they would be able to admit on 06/27/18 for dressing changes. CM faxed over discharge records. Patient will be going home on oral antibiotics. IMM explained and served @ 1010. Patient denies any discharge charge needs at this time. CM will continue to follow and assist with discharge planning / needs. DCP- Discharge Planning Updated by [email or web address]: Mariana Redman on 06/21/18 4:[address] CM was notified that patient will need Home Health for dressing changes. CM spoke with patient and stated that he wanted to use the same company he has used in the past. ZULEMA called Dr. Batista office to obtain Home Health agency. [facility] was notified and records faxed. Agency will not be able to start dressing changes until 06/24. ZULEMA was notified later that patient will most likely need IV home antibiotics. Awaiting to find out which antibiotics will be needed for home therapy. If IV antibiotics are needed will need to check with infusion company. IMM explained and served @1101 CM will continue to follow and assist as needed with discharge planning / needs. DCP- Discharge Planning Updated by [email or web address]: Mariana Redman on 06/19/18 6:[address] Late Entry 06/19/18 @ 1500 Patient Name: ZE SAHU Admission Status: ER Accout number: [id number] Admission Date: 06-15-2018 : 1955 Admission Diagnosis: Attending: RASHEL, Current LOS: 4 Anticipated DC Date: Planned Disposition: Home Primary Insurance: [employer] Discharge Planning Comments: CM met with patient at bedside after obtaining verbal consent. Patient states he plans on returning home alone after discharge. Patient states he will have family transport him home via private vehicle. Patient states he may need home health for dressing changes at home. CM will continue to follow and assist as needed for discharge planning / needs. Restaurant Managing Partner: Mariana Redman DCPIA - Discharge Planning Initial Assessment Updated by [email or web address]: Mariana Redman on 06/19/18 7:06 pm * Is the patient Alert and Oriented? Yes * How many steps to enter\exit or inside your home? * PCP DR. BATISTA * [facility] - [facility]IL [facility] * Preadmission Environment Home Alone * ADLs Independent * Equipment Cane * Other Equipment WALKER * List name and contact numbers for known caregivers / representatives who currently or will assist patient after discharge: NASIM GARRISON [phone] FRIEND GABY SAHU [phone] UNCLE * Verbal permission to speak to the caregivers and representatives has been obtained from the patient. Yes * Community resources currently utilized None * Please name any agencies selected above. HAS HAD HOME HEALTH PREVIOUSLY * Additional services required to return to the preadmission environment? No * Can the patient safely return to the preadmission environment? Yes * Has this patient been hospitalized within the prior 30 days at any hospital? No Coverage Notice Reviewer: [id number] Nikhil Redman Notice Issued Date-Time: 06/21/2018 11:01 Notice Type: IM Discharge Notice Notice Delivered To: Patient Relationship to Patient: Self Animal Tech Name: Delivery Method: HAND - Hand Delivered Shahrzad Days: Prior Verbal Notification: Recipient Understood Notice: Yes Recipient Signature: Yes Med Rec Note Co-signed by Attending: Coverage Notice Comment: Reviewer: [id number] Nikhil Redman Notice Issued Date-Time: 06/25/2018 12:13 Notice Type: IM Discharge Notice Notice Delivered To: Patient Relationship to Patient: Self Animal Tech Name: Delivery Method: HAND - Hand Delivered Shahrzad Days: Prior Verbal Notification: Recipient Understood Notice: Yes Recipient Signature: Yes Med Rec Note Co-signed by Attending: Coverage Notice Comment: Last DP export: 06/21/18 5:04 Patient Name: ZE SAHU Page [id number] at 1228 All edits/amendments must be made on the electronic document DICTATION DATE: 06/25/181226 PROCEDURES RN: LAUREEN 06/25/187 RPT#: [id number] DC DATE:06/25/18 STATUS: DIS IN [facility] [address] [place] [address] END OF REPORT
--- NOTE | ~2018-06-15 | HP ---
PATIENT: ZE SAHU MEDICAL RECORD: [id number] ACCOUNT: [id number] LOCATION:[facility] D1209 : 59 ADMISSION DATE: 06/15/18 PCP: IRINA BATISTA DO HISTORY AND PHYSICAL EXAMINATION HISTORY OF PRESENT ILLNESS: Mr. Sahu is a 62-year-old white male that has a diabetic foot ulcer involving the right foot. We have been following for several months and debriding. He actually underwent an amputation several years ago by Dr. Mckeon for a bad ischemic toe. Since then, he has had troubles at the site of the amputation. We had almost had it healed a month or so back, but it has gotten worse. I recently started Unna dressing on it, which actually improved that part of the foot, but he has now broken out on an ulcer on the medial part of his foot, which has now worsened and we can actually see the distal metatarsal. He is initially resistant for hospitalization, [place]. One of the reasons that I actually went to the Unna dressing was is that the wound was staying dirty and I would find dog hair in it and he states that his dog often lick this foot too. At any point, it has gotten worse and is going to require IV antibiotics and may require a possible amputation. His diabetes control has actually been pretty good recently. His most recent A1c was 5.9. We actually went back on his medicine a little bit because of hypoglycemia. He has had a normal renal function in the past. He is admitted at this time for further evaluation. PAST MEDICAL HISTORY: Significant for morbid obesity, mild COPD, depression, diabetic neuropathy, secondary to diabetic foot ulcer, hyperlipidemia, hypertension, and chronic pain. PAST SURGICAL HISTORY: Include amputation of great toe and eye surgery in 2008. ALLERGIES OR INTOLERANCES: INCLUDE METFORMIN, WHICH CAUSED DIARRHEA AND NAPROXEN. HOME MEDICATIONS: He has been on Bactrim recently. He takes tramadol for pain, ranitidine 150 three times a day, simvastatin 10 mg at bedtime, lisinopril 20/ HCTZ 25 one p.o. in the morning, metoclopramide 10 mg twice a day, sertraline 50 mg a day, baby aspirin a day, and Toujeo 25 units a day. FAMILY HISTORY: Significant for coronary artery disease, hypertension, and COPD, mom with hep C, mom with chronic renal failure, and mom with type 2 diabetes. SOCIAL HISTORY: He does smoke about a pack and a half per day. He has smoked for over 45 years. [place] REVIEW OF SYSTEMS: He denies any fever. He denies any chest pain or shortness of breath. He has limited ambulation due to his foot and his body habitus. He does seem more depressed today due to the current condition of his foot and is a little tearful at times. PHYSICAL EXAMINATION: GENERAL: He is obese, alert and oriented. HEENT: Normocephalic. NECK: Soft and supple. HEART: Regular. HISTORY AND PHYSICAL [id number] ZE SAHU LUNGS: Clear. ABDOMEN: Soft. EXTREMITIES: Right foot reveal status post amputation with a healed ulcer on the end, but a new open wound on the medial aspect of the foot. He also has some opening now on the lateral aspect and a little posterior. He has diminished pulses. IMPRESSION: 1. Diabetic foot ulcer. 2. History of previous toe amputation. 3. Diabetic neuropathy. 4. Depression. 5. Obesity. 6. Tobacco use. 7. Chronic obstructive pulmonary disease. 8. Obesity. PLAN: Admit. He initially declined admission, but does agree to come in because of his dog after checking with some friends. He has had arranged for someone to take care of his dog and he will go into the hospital on 06/15/2018, in the morning. Orders have been written and faxed to the Emergency Room and the clearing house clerk will be contacted. TRANSINT:[id number] Voice Confirmation ID: [id number] DOCUMENT ID: [id number] IRINA BATISTA DO at 1441 CC: [id number] DICTATION DATE: 06/14/181906 MOLD MOVER: 06/14/182107 ADM IN [place] [id number] [place] [id number]
--- NOTE | ~2018-06-15 | MORECARE ---
CASE MANAGEMENT DISCHARGE SUMMARY PATIENT: ZE SAHU UNIT: [id number] ADM DATE: 06/15/18 AGE: 62 : 59 SEX: M ROOM/BED: D.1209 AUTHOR: SARAYDOC PHYSICIAN: REFERRING PHYSICIAN: MORA KISER MD DATE OF SERVICE: 06/25/18 Discharge Plan Patient Name: ZE SAHU Facility: [facility]:[place] : 1955 Planned Disposition: Home Anticipated Discharge Date: Discharge Date: 06/25/2018 Expected LOS: Initial Reviewer: [email or web address] Initial Review Date: 06/15/2018 Generated: 06/25/18 1:56 pm Comments DCP- Discharge Planning Updated by [email or web address]: Marinaa Redman on 06/25/18 11:[address] Late entry 06/25/18 @1000 CM notified of discharge today. CM contacted [facility] with [facility] [phone] and fax [phone]. [facility] stated they would be able to admit on 06/27/18 for dressing changes. CM faxed over discharge records. Patient will be going home on oral antibiotics. IMM explained and served @ 1010. Patient denies any discharge charge needs at this time. CM will continue to follow and assist with discharge planning / needs. DCP- Discharge Planning Updated by [email or web address]: Mariana Redman on 06/21/18 4:[address] CM was notified that patient will need Home Health for dressing changes. CM spoke with patient and stated that he wanted to use the same company he has used in the past. ZULEMA called Dr. Batista office to obtain Home Health agency. [facility] was notified and records faxed. Agency will not be able to start dressing changes until 06/24. ZULEMA was notified later that patient will most likely need IV home antibiotics. Awaiting to find out which antibiotics will be needed for home therapy. If IV antibiotics are needed will need to check with infusion company. IMM explained and served @1101 CM will continue to follow and assist as needed with discharge planning / needs. DCP- Discharge Planning Updated by [email or web address]: Mariana Redman on 06/19/18 6:[address] Late Entry 06/19/18 @ 1500 Patient Name: ZE SAHU Admission Status: ER Accout number: [id number] Admission Date: 06-15-2018 : 1955 Admission Diagnosis: Attending: RASHEL, Current LOS: 4 Anticipated DC Date: Planned Disposition: Home Primary Insurance: [employer] Discharge Planning Comments: CM met with patient at bedside after obtaining verbal consent. Patient states he plans on returning home alone after discharge. Patient states he will have family transport him home via private vehicle. Patient states he may need home health for dressing changes at home. CM will continue to follow and assist as needed for discharge planning / needs. Social Work Coordinator: Mariana Redman DCPIA - Discharge Planning Initial Assessment Updated by [email or web address]: Mariana Redman on 06/19/18 7:06 pm * Is the patient Alert and Oriented? Yes * How many steps to enter\exit or inside your home? * PCP DR. BATISTA * [facility] - [facility]IL ORDER * Preadmission Environment Home Alone * ADLs Independent * Equipment Cane * Other Equipment WALKER * List name and contact numbers for known caregivers / representatives who currently or will assist patient after discharge: NASIM GARRISON [phone] FRIEND GABY SAHU [phone] [place] * Verbal permission to speak to the caregivers and representatives has been obtained from the patient. Yes * Community resources currently utilized None * Please name any agencies selected above. HAS HAD HOME HEALTH PREVIOUSLY * Additional services required to return to the preadmission environment? No * Can the patient safely return to the preadmission environment? Yes * Has this patient been hospitalized within the prior 30 days at any hospital? No Coverage Notice Reviewer: [id number] Nikhil Redman Notice Issued Date-Time: 06/21/2018 11:01 Notice Type: IM Discharge Notice Notice Delivered To: Patient Relationship to Patient: Self Coordinate Measuring Machine Operator Name: Delivery Method: HAND - Hand Delivered Shahrzad Days: Prior Verbal Notification: Recipient Understood Notice: Yes Recipient Signature: Yes Med Rec Note Co-signed by Attending: Coverage Notice Comment: Reviewer: [id number] Nikhil Redman Notice Issued Date-Time: 06/25/2018 12:13 Notice Type: IM Discharge Notice Notice Delivered To: Patient Relationship to Patient: Self Coordinate Measuring Machine Operator Name: Delivery Method: HAND - Hand Delivered Shahrzad Days: Prior Verbal Notification: Recipient Understood Notice: Yes Recipient Signature: Yes Med Rec Note Co-signed by Attending: Coverage Notice Comment: Last DP export: 06/25/18 11:28 Patient Name: ZE SAHU Page 81858 at 1256 All edits/amendments must be made on the electronic document DICTATION DATE: 06/25/18 1255 BUSINESS TRAVEL CONSULTANT: LAUREEN 06/25/18 1255 RPT#: [id number] DC DATE:06/25/18 STATUS: DIS IN [facility] [address] [place] [address] END OF REPORT
--- NOTE | ~2018-06-15 | MORECARE ---
CASE MANAGEMENT DISCHARGE SUMMARY PATIENT: ZE SAHU UNIT: [id number] ADM DATE: 06/15/18 AGE: 62 : 59 SEX: M ROOM/BED: D.1209 AUTHOR: ADELAIDE SO PHYSICIAN: REFERRING PHYSICIAN: MORA KISER MD DATE OF SERVICE: 06/19/18 Discharge Plan Patient Name: ZE SAHU [facility] [facility] 1955 Planned Disposition: Home Anticipated Discharge Date: Discharge Date: Expected LOS: Initial Reviewer: [email or web address] Initial Review Date: 06/15/2018 Generated: 06/19/18 8:06 pm DCPIA - Discharge Planning Initial Assessment Updated by [email or web address]: Mariana Redman on 06/19/18 7:06 pm * Is the patient Alert and Oriented? Yes * How many steps to enter\exit or inside your home? * PCP DR. BATISTA * [facility] - [facility]IL ORDER * Preadmission Environment Home Alone * ADLs Independent * Equipment Cane * Other Equipment WALKER * List name and contact numbers for known caregivers / representatives who currently or will assist patient after discharge: NASIM GARRISON [phone] FRIEND GABY SAHU [phone] [place]CLE * Verbal permission to speak to the caregivers and representatives has been obtained from the patient. Yes * Community resources currently utilized None * Please name any agencies selected above. HAS HAD HOME HEALTH PREVIOUSLY * Additional services required to return to the preadmission environment? No * Can the patient safely return to the preadmission environment? Yes * Has this patient been hospitalized within the prior 30 days at any hospital? No Last DP export: 06/17/18 3:46 Patient Name: ZE SAHU Page 15551 at 1907 All edits/amendments must be made on the electronic document DICTATION DATE: 06/19/181905 THERMAL CUTTING MACHINE OPERATOR: LAUREEN 06/19/181905 RPT#: [id number] DC DATE: STATUS: ADM IN [facility] [address] [place] [address] END OF REPORT
--- NOTE | ~2018-06-15 | OP ---
PATIENT NAME: ZE SAHU MEDICAL RECORD: [id number] :[birth year] LOCATION:D.M3 D.1209 ADMISSION DATE:06/15/18 SURGEON: JULIANNE FOX MD DATE OF OPERATION: 06/17/2018 PREOPERATIVE DIAGNOSIS: Nonhealing wound, right fifth metatarsal head (exposed metatarsal head with substantial cellulitis). POSTOPERATIVE DIAGNOSIS: Nonhealing wound, right fifth metatarsal head (exposed metatarsal head with substantial cellulitis). PROCEDURE: 1. Excisional debridement to include skin, subcutaneous tissue, portions of fat, fascia, muscle and bone. 2. Metatarsal resection. SURGEON: Julianne Fox MD ANESTHESIA: General. INTRAOPERATIVE COMPLICATIONS: None. SUMMARY OF PATHOLOGIC FINDINGS: While the MRI did not show evidence of osteomyelitis, the patient's periosteum was very loose and there were some periosteal reactions. This was excised in its entirety as was the periosteum and the capsule about the metatarsal head in hopes of freeing this of infection. Please note intraoperative cultures were taken and the wound was closed. OPERATIVE SUMMARY IN DETAIL: After obtaining the appropriate preoperative orthopedic surgery consent as well as anesthetic consultation, evaluation, and clearance, the patient was brought to the operating room and placed on the table in supine position. After general laryngeal mask airway was administered, tourniquet was placed about the proximal aspect of the right lower extremity and it was not used during this case. Right lower extremity was then prepped and draped in routine sterile fashion using Betadine wet prep. Elliptical and a tennis racquet type incision was drawn. The incision was carried down the length of the metatarsal and elliptically around the entire area of skin necrosis. Serial and sequential debridement was then followed by complete dissection of the periosteum around the metatarsal head. Then, an oblique cut was made from medial to lateral to ensure the patient did not have any prominent skin bumps. The metatarsal was removed in its entirety. Note that cultures were taken off this bone on the back field. Having completed this, the entire periosteal remnant as well as the residual capsule about the metatarsal head were excised in their entirety. Copious irrigation was then followed by large and small Prolene closure for reapproximation. Having completed this, sterile dressings were applied. The patient was awakened and taken to the recovery room in stable condition. All final needle and sponge counts were correct. TRANSINT:[id number] Voice Confirmation ID: [id number] DOCUMENT ID: [id number] OPERATIVE REPORT [id number] ZE SAHU MD, JULIANNE SOTO at 0844 CC: [id number] DICTATION DATE: 06/21/18 1323 CAN FEEDER: 06/21/18 1400 ADM IN [facility] [address] [place] [address]
[~2018-06-15 08:47] MED LIST: ATIVAN0.5 MG PO; Bactroban ointment TOPICAL; FLORANEX / LACT1 TAB PO; K-DUR20 MEQ PO; KEFLEX500 MG PO; LANTUS INSULIN10 ML SC; LEVAQUIN750 MG PO; LISINOPRIL-HCTZ1 T13 PO; NEURONTIN800 MG PO; NORCO 7.5/325 T1 TA1 PO; ULTRAM50 MG PO; ZOCOR10 MG PO
[2018-06-15] MEDS ORDERED: TRUJEO SC (08:51)
[2018-06-15] MEDS ORDERED: RANITIDINE HCL150 M1 PO (08:51)
[2018-06-15] MEDS ORDERED: ULTRAM50 MG PO (08:52)
[2018-06-15 10:00] LABS: BASOPHILS 0.2 % (0-2); HEMATOCRIT 43.1 % (42.0-54.0); HEMOGLOBIN 15.1 g/dL (13.5-17.5); IMMATURE GRANULOCYTES 0.4 % (0-5); LYMPHOCYTES 16.3 % (15-50); MCH 29.7 pg (26.0-34.0); MCV 84.7 fL (80.0-100.0); MEAN PLATELET VOLUME 9.1 fL (7.4-10.4); MONOCYTES 4.9 % (2-11); NEUTROPHILS 76.2 % (40-80); PLATELET COUNT 311 10x3/uL (130-400); RBC 5.09 10x6/uL (4.20-6.10); RDW 13.3 % (11.5-14.5); WBC 12.7 10x3/uL (4.8-10.8)
[2018-06-15 10:11] LABS: ALBUMIN 2.7 g/dL (3.4-5.0); ALKALINE PHOSPHATASE 89 U/L (46-116); ALT (SGPT) 23 U/L (10-68); BILIRUBIN - TOTAL 0.51 mg/dL (0.2-1.3); CALC OSMOLALITY 272 mosm/kg (275-300); CARBON DIOXIDE 25.9 mmol/L (21.0-32.0); CHLORIDE - SERUM 96 mmol/L (98-107); CREATININE - SERUM 0.8 mg/dL (0.6-1.3); GLUCOSE 199 mg/dL (74-106); POTASSIUM - SERUM 3.5 mmol/L (3.5-5.1); PROTEIN - SERUM 7.7 g/dL (6.4-8.2); SODIUM 133 mmol/L (136-145); UREA NITROGEN 14 mg/dL (7-18); eGFR NON AFRICAN AMERICAN > 90 mL/min (90-120)
[2018-06-15 10:20] LABS: C-REACTIVE PROTEIN 9.6 mg/dL (0.0-0.9); PRO BNP 40 pg/mL (0-125)
[2018-06-15 10:36] LABS: TROPONIN-I < 0.017 ng/mL (0.000-0.060)
[2018-06-15 14:43] VITALS: BP 99/61; BMI 41.4
[2018-06-15 15:45] LABS: ERYTHROCYTE SEDIMENTATION RATE 48 mm/hr (0-20)
[2018-06-15 17:49] LABS: APPEARANCE CLEAR (CLEAR); BILIRUBIN NEGATIVE (NEGATIVE); COLOR YELLOW (YELLOW); GLUCOSE NEGATIVE (NEGATIVE); KETONE NEGATIVE (NEGATIVE); NITRITE NEGATIVE (NEGATIVE); PROTEIN NEGATIVE (NEGATIVE); SPECIFIC GRAVITY 1.025 (1.005-1.020)
[2018-06-15 19:05] VITALS: BP 123/60
[2018-06-15 22:59] VITALS: BP 116/55
[2018-06-16 02:59] VITALS: BP 94/54
[2018-06-16 06:45] VITALS: BP 144/77
[2018-06-16 11:10] VITALS: BP 118/77
[2018-06-16 14:59] VITALS: BP 143/76
[2018-06-16 19:56] VITALS: BP 133/70
[2018-06-16 23:34] VITALS: BP 112/51
[2018-06-17 03:57] VITALS: BP 101/45
[2018-06-17 06:39] LABS: ALBUMIN 2.7 g/dL (3.4-5.0); ALKALINE PHOSPHATASE 87 U/L (46-116); ALT (SGPT) 27 U/L (10-68); BILIRUBIN - TOTAL 0.63 mg/dL (0.2-1.3); CALC OSMOLALITY 263 mosm/kg (275-300); CALCIUM 8.8 mg/dL (8.5-10.1); CARBON DIOXIDE 28.3 mmol/L (21.0-32.0); CHLORIDE - SERUM 96 mmol/L (98-107); CREATININE - SERUM 0.7 mg/dL (0.6-1.3); GLUCOSE 89 mg/dL (74-106); POTASSIUM - SERUM 3.5 mmol/L (3.5-5.1); PROTEIN - SERUM 7.8 g/dL (6.4-8.2); SODIUM 133 mmol/L (136-145); UREA NITROGEN 10 mg/dL (7-18); eGFR NON AFRICAN AMERICAN > 90 mL/min (90-120)
[2018-06-17 07:19] LABS: BASOPHILS 0.2 % (0-2); EOSINOPHILS 3.2 % (0-7); HEMATOCRIT 42.5 % (42.0-54.0); HEMOGLOBIN 14.7 g/dL (13.5-17.5); IMMATURE GRANULOCYTES 0.4 % (0-5); LYMPHOCYTES 28.6 % (15-50); MCH 29.4 pg (26.0-34.0); MCHC 34.6 g/dL (31.0-37.0); MEAN PLATELET VOLUME 9.2 fL (7.4-10.4); MONOCYTES 6.2 % (2-11); NEUTROPHILS 61.4 % (40-80); PLATELET COUNT 358 10x3/uL (130-400); RDW 13.4 % (11.5-14.5)
[2018-06-17 07:32] VITALS: BP 100/48
[2018-06-17 11:03] VITALS: Ht 182.9 cm; Wt 129.2 kg
[2018-06-17 11:18] VITALS: BP 121/69
[2018-06-17 16:40] VITALS: BP 107/59
[2018-06-17 19:15] VITALS: BP 105/42
[2018-06-18 00:28] VITALS: BP 113/62
[2018-06-18 04:18] VITALS: BP 119/49
[2018-06-18 05:00] LABS: BASOPHILS 0.3 % (0-2); EOSINOPHILS 2.5 % (0-7); HEMATOCRIT 38.6 % (42.0-54.0); HEMOGLOBIN 13.1 g/dL (13.5-17.5); IMMATURE GRANULOCYTES 0.3 % (0-5); MCHC 33.9 g/dL (31.0-37.0); MCV 85.4 fL (80.0-100.0); MONOCYTES 5.9 % (2-11); PLATELET COUNT 296 10x3/uL (130-400); RBC 4.52 10x6/uL (4.20-6.10); RDW 13.2 % (11.5-14.5); WBC 11.6 10x3/uL (4.8-10.8)
[2018-06-18 05:23] LABS: ALBUMIN 2.4 g/dL (3.4-5.0); ALKALINE PHOSPHATASE 78 U/L (46-116); ALT (SGPT) 24 U/L (10-68); BILIRUBIN - TOTAL 0.47 mg/dL (0.2-1.3); CALC OSMOLALITY 271 mosm/kg (275-300); CALCIUM 8.4 mg/dL (8.5-10.1); CARBON DIOXIDE 30.1 mmol/L (21.0-32.0); CHLORIDE - SERUM 98 mmol/L (98-107); CREATININE - SERUM 0.7 mg/dL (0.6-1.3); GLUCOSE 133 mg/dL (74-106); POTASSIUM - SERUM 3.7 mmol/L (3.5-5.1); PROTEIN - SERUM 6.9 g/dL (6.4-8.2); SODIUM 135 mmol/L (136-145); UREA NITROGEN 12 mg/dL (7-18); eGFR NON AFRICAN AMERICAN > 90 mL/min (90-120)
[2018-06-18 07:18] VITALS: BP 104/57
[2018-06-18 12:58] VITALS: BP 135/56
[2018-06-18 18:22] VITALS: BP 139/82
[2018-06-18 19:38] VITALS: BP 149/69
[2018-06-19 00:16] VITALS: BP 131/69
[2018-06-19 04:58] VITALS: BP 148/73
[2018-06-19 05:46] LABS: BASOPHILS 0.4 % (0-2); EOSINOPHILS 3.7 % (0-7); HEMATOCRIT 41.1 % (42.0-54.0); HEMOGLOBIN 14.1 g/dL (13.5-17.5); IMMATURE GRANULOCYTES 0.3 % (0-5); LYMPHOCYTES 29.9 % (15-50); MCH 29.4 pg (26.0-34.0); MCHC 34.3 g/dL (31.0-37.0); MCV 85.8 fL (80.0-100.0); MEAN PLATELET VOLUME 8.9 fL (7.4-10.4); MONOCYTES 6.1 % (2-11); NEUTROPHILS 59.6 % (40-80); PLATELET COUNT 317 10x3/uL (130-400); RBC 4.79 10x6/uL (4.20-6.10); RDW 13.1 % (11.5-14.5); WBC 10.2 10x3/uL (4.8-10.8)
[2018-06-19 06:36] LABS: ALBUMIN 2.7 g/dL (3.4-5.0); ALKALINE PHOSPHATASE 79 U/L (46-116); ALT (SGPT) 27 U/L (10-68); BILIRUBIN - TOTAL 0.43 mg/dL (0.2-1.3); CALC OSMOLALITY 270 mosm/kg (275-300); CHLORIDE - SERUM 98 mmol/L (98-107); CREATININE - SERUM 0.7 mg/dL (0.6-1.3); GLUCOSE 108 mg/dL (74-106); POTASSIUM - SERUM 3.6 mmol/L (3.5-5.1); PROTEIN - SERUM 7.8 g/dL (6.4-8.2); SODIUM 136 mmol/L (136-145); eGFR NON AFRICAN AMERICAN > 90 mL/min (90-120)
[2018-06-19 06:37] LABS: UREA NITROGEN 7 mg/dL (7-18)
[2018-06-19 07:36] VITALS: BP 126/78
[2018-06-19 11:52] VITALS: BP 123/70
[2018-06-19 15:53] VITALS: BP 103/59
[2018-06-19 19:41] VITALS: BP 117/53
[2018-06-20 01:17] VITALS: BP 135/75
[2018-06-20 04:33] VITALS: BP 153/86
[2018-06-20 04:56] LABS: BASOPHILS 0.4 % (0-2); EOSINOPHILS 4.1 % (0-7); HEMATOCRIT 41.5 % (42.0-54.0); IMMATURE GRANULOCYTES 0.3 % (0-5); LYMPHOCYTES 29.1 % (15-50); MCHC 33.7 g/dL (31.0-37.0); MCV 85.9 fL (80.0-100.0); MEAN PLATELET VOLUME 9.2 fL (7.4-10.4); MONOCYTES 5.8 % (2-11); NEUTROPHILS 60.3 % (40-80); PLATELET COUNT 345 10x3/uL (130-400); RBC 4.83 10x6/uL (4.20-6.10); RDW 13.2 % (11.5-14.5); WBC 11.2 10x3/uL (4.8-10.8)
[2018-06-20 05:20] LABS: ALBUMIN 2.7 g/dL (3.4-5.0); ALKALINE PHOSPHATASE 79 U/L (46-116); ALT (SGPT) 27 U/L (10-68); BILIRUBIN - TOTAL 0.31 mg/dL (0.2-1.3); CALC OSMOLALITY 268 mosm/kg (275-300); CALCIUM 8.8 mg/dL (8.5-10.1); CARBON DIOXIDE 28.3 mmol/L (21.0-32.0); CHLORIDE - SERUM 98 mmol/L (98-107); CREATININE - SERUM 0.7 mg/dL (0.6-1.3); GLUCOSE 98 mg/dL (74-106); POTASSIUM - SERUM 3.7 mmol/L (3.5-5.1); PROTEIN - SERUM 7.6 g/dL (6.4-8.2); SODIUM 135 mmol/L (136-145); eGFR NON AFRICAN AMERICAN > 90 mL/min (90-120)
[2018-06-20 05:32] LABS: UREA NITROGEN 9 mg/dL (7-18)
[2018-06-20 07:27] VITALS: BP 101/62
[2018-06-20 10:48] VITALS: BP 111/60
[2018-06-20 15:18] VITALS: BP 120/60
[2018-06-20 20:14] VITALS: BP 121/74
[2018-06-21 00:17] VITALS: BP 151/88
[2018-06-21 04:59] VITALS: BP 118/75
[2018-06-21 05:07] LABS: BASOPHILS 0.3 % (0-2); EOSINOPHILS 3.9 % (0-7); HEMATOCRIT 41.8 % (42.0-54.0); IMMATURE GRANULOCYTES 0.3 % (0-5); LYMPHOCYTES 29.2 % (15-50); MCHC 33.5 g/dL (31.0-37.0); MCV 86.5 fL (80.0-100.0); MEAN PLATELET VOLUME 9.1 fL (7.4-10.4); MONOCYTES 5.1 % (2-11); NEUTROPHILS 61.2 % (40-80); PLATELET COUNT 358 10x3/uL (130-400); RBC 4.83 10x6/uL (4.20-6.10); RDW 13.2 % (11.5-14.5); WBC 11.5 10x3/uL (4.8-10.8)
[2018-06-21 06:05] LABS: ALBUMIN 2.9 g/dL (3.4-5.0); ALKALINE PHOSPHATASE 83 U/L (46-116); ALT (SGPT) 28 U/L (10-68); BILIRUBIN - TOTAL 0.38 mg/dL (0.2-1.3); CALC OSMOLALITY 271 mosm/kg (275-300); CALCIUM 8.8 mg/dL (8.5-10.1); CARBON DIOXIDE 28.1 mmol/L (21.0-32.0); CHLORIDE - SERUM 99 mmol/L (98-107); CREATININE - SERUM 0.7 mg/dL (0.6-1.3); GLUCOSE 87 mg/dL (74-106); POTASSIUM - SERUM 3.9 mmol/L (3.5-5.1); PROTEIN - SERUM 7.1 g/dL (6.4-8.2); SODIUM 137 mmol/L (136-145); UREA NITROGEN 10 mg/dL (7-18); eGFR NON AFRICAN AMERICAN > 90 mL/min (90-120)
[2018-06-21 07:19] VITALS: BP 118/73
[2018-06-21 11:12] VITALS: BP 129/77
[2018-06-21 16:48] VITALS: BP 122/83
[2018-06-21 20:01] VITALS: BP 130/71
[2018-06-22 00:26] VITALS: BP 117/73
[2018-06-22 04:37] VITALS: BP 101/57
[2018-06-22 07:19] VITALS: BP 139/71
[2018-06-22 11:19] VITALS: BP 113/66
[2018-06-22 15:30] VITALS: BP 134/73
[2018-06-22 19:25] VITALS: BP 116/66
[2018-06-23 00:07] VITALS: BP 126/72
[2018-06-23 04:24] VITALS: BP 150/83
[2018-06-23 06:37] LABS: BASOPHILS 0.3 % (0-2); EOSINOPHILS 3.1 % (0-7); HEMATOCRIT 43.2 % (42.0-54.0); HEMOGLOBIN 14.6 g/dL (13.5-17.5); IMMATURE GRANULOCYTES 0.3 % (0-5); MCH 29.3 pg (26.0-34.0); MCHC 33.8 g/dL (31.0-37.0); MCV 86.6 fL (80.0-100.0); MEAN PLATELET VOLUME 9.4 fL (7.4-10.4); MONOCYTES 6.1 % (2-11); NEUTROPHILS 66.2 % (40-80); PLATELET COUNT 339 10x3/uL (130-400); RBC 4.99 10x6/uL (4.20-6.10); RDW 13.5 % (11.5-14.5); WBC 11.5 10x3/uL (4.8-10.8)
[2018-06-23 06:54] LABS: CALC OSMOLALITY 271 mosm/kg (275-300); CALCIUM 9.6 mg/dL (8.5-10.1); CARBON DIOXIDE 28.7 mmol/L (21.0-32.0); CHLORIDE - SERUM 99 mmol/L (98-107); CREATININE - SERUM 0.7 mg/dL (0.6-1.3); GLUCOSE 93 mg/dL (74-106); POTASSIUM - SERUM 4.4 mmol/L (3.5-5.1); SODIUM 136 mmol/L (136-145); UREA NITROGEN 12 mg/dL (7-18); eGFR NON AFRICAN AMERICAN > 90 mL/min (90-120)
[2018-06-23 07:13] VITALS: BP 122/84
[2018-06-23 11:44] VITALS: BP 115/72
[2018-06-23 16:36] VITALS: BP 105/54
[2018-06-23 19:45] VITALS: BP 137/66
[2018-06-24] VITALS: BP 123/62
[2018-06-24 04:00] VITALS: BP 136/70
[2018-06-24 06:16] LABS: BASOPHILS 0.2 % (0-2); EOSINOPHILS 2.9 % (0-7); HEMATOCRIT 43.2 % (42.0-54.0); HEMOGLOBIN 14.3 g/dL (13.5-17.5); IMMATURE GRANULOCYTES 0.2 % (0-5); LYMPHOCYTES 20.5 % (15-50); MCH 28.8 pg (26.0-34.0); MCHC 33.1 g/dL (31.0-37.0); MCV 87.1 fL (80.0-100.0); MEAN PLATELET VOLUME 9.5 fL (7.4-10.4); MONOCYTES 5.9 % (2-11); NEUTROPHILS 70.3 % (40-80); PLATELET COUNT 341 10x3/uL (130-400); RBC 4.96 10x6/uL (4.20-6.10); RDW 13.4 % (11.5-14.5); WBC 11.5 10x3/uL (4.8-10.8)
[2018-06-24 06:43] LABS: CALC OSMOLALITY 270 mosm/kg (275-300); CALCIUM 8.8 mg/dL (8.5-10.1); CARBON DIOXIDE 29.4 mmol/L (21.0-32.0); CHLORIDE - SERUM 100 mmol/L (98-107); CREATININE - SERUM 0.8 mg/dL (0.6-1.3); GLUCOSE 109 mg/dL (74-106); SODIUM 135 mmol/L (136-145); UREA NITROGEN 13 mg/dL (7-18); VANCOMYCIN - TROUGH 21.2 ug/mL (10.0-20.0); eGFR NON AFRICAN AMERICAN > 90 mL/min (90-120)
[2018-06-24 06:45] LABS: POTASSIUM - SERUM 3.5 mmol/L (3.5-5.1)
[2018-06-24 07:33] VITALS: BP 125/75
[2018-06-24 11:18] VITALS: BP 120/77
[2018-06-24] MEDS ORDERED: HCTZ25 MG PO (15:32)
[2018-06-24] MEDS ORDERED: FLORAJEN3 CAPS460 MG PO (15:32)
[2018-06-24] MEDS ORDERED: ZOLOFT50 MG PO (15:32)
[2018-06-24] MEDS ORDERED: LEVAQUIN750 MG PO (15:33)
[2018-06-24] MEDS ORDERED: Lantus Solostar PEN SC (15:34)
[2018-06-24 18:25] VITALS: BP 122/68
[2018-06-24 19:53] VITALS: BP 111/78
[2018-06-25 00:39] VITALS: BP 120/60
[2018-06-25 04:53] VITALS: BP 118/63
[2018-06-25 06:03] LABS: CALC OSMOLALITY 273 mosm/kg (275-300); CALCIUM 8.9 mg/dL (8.5-10.1); CARBON DIOXIDE 29.7 mmol/L (21.0-32.0); CHLORIDE - SERUM 100 mmol/L (98-107); CREATININE - SERUM 0.9 mg/dL (0.6-1.3); GLUCOSE 94 mg/dL (74-106); POTASSIUM - SERUM 3.7 mmol/L (3.5-5.1); SODIUM 137 mmol/L (136-145); UREA NITROGEN 12 mg/dL (7-18); eGFR NON AFRICAN AMERICAN > 90 mL/min (90-120)
[2018-06-25 06:04] LABS: BASOPHILS 0.2 % (0-2); EOSINOPHILS 2.5 % (0-7); HEMATOCRIT 42.2 % (42.0-54.0); IMMATURE GRANULOCYTES 0.2 % (0-5); LYMPHOCYTES 25.4 % (15-50); MCH 28.7 pg (26.0-34.0); MCHC 33.2 g/dL (31.0-37.0); MCV 86.7 fL (80.0-100.0); MEAN PLATELET VOLUME 9.6 fL (7.4-10.4); MONOCYTES 6.1 % (2-11); NEUTROPHILS 65.6 % (40-80); PLATELET COUNT 342 10x3/uL (130-400); RBC 4.87 10x6/uL (4.20-6.10); RDW 13.4 % (11.5-14.5); WBC 11.5 10x3/uL (4.8-10.8)
[2018-06-25 07:26] VITALS: BP 147/80
[2018-06-28 17:13] LABS: AEROBE ID Final report (())
== END 2018-06-25 10:40 | disposition home health service (06) | DRG 987 ==
LOC: D.ER 08:47 → D.EDHOLD 10:02 → D.M3 10:02
PROVIDERS: Family Medicine; Internal Medicine Nephrology; Orthopaedic Surgery
PROC: 0QTN0ZZ Resection of Right Metatarsal, Open Approach (ICD-10-PCS; principal; 2018-06-17 13:15)
PROC: 05HC33Z Insertion of Infusion Device into Left Basilic Vein, Percutaneous Approach (ICD-10-PCS; 2018-06-21)
PROC: B54NZZA Ultrasonography of Left Upper Extremity Veins, Guidance (ICD-10-PCS; 2018-06-21)
DX: E11.621 Type 2 diabetes mellitus with foot ulcer (principal); L89.894 Pressure ulcer of other site, stage 4; L97.516 Non-pressure chronic ulcer of other part of right foot with bone involvement without evidence of necrosis; F17.213 Nicotine dependence, cigarettes, with withdrawal; M86.171 Other acute osteomyelitis, right ankle and foot; Z68.41 Body mass index [BMI] 40.0-44.9, adult; E11.65 Type 2 diabetes mellitus with hyperglycemia; E11.69 Type 2 diabetes mellitus with other specified complication; K21.9 Gastro-esophageal reflux disease without esophagitis; E78.5 Hyperlipidemia, unspecified; I10 Essential (primary) hypertension; E66.01 Morbid (severe) obesity due to excess calories; J44.9 Chronic obstructive pulmonary disease, unspecified; F32.9 Major depressive disorder, single episode, unspecified; E11.40 Type 2 diabetes mellitus with diabetic neuropathy, unspecified